=== PATIENT | female | born 1970 | race Caucasian/White ===

== ENCOUNTER 2016-09-11 23:04 | Emergency (ER) | payer OTHER ==
[2016-09-11 23:13] VITALS: BP 139/93; TEMP 97.8; BMI 27.0
[2016-09-11] MEDS ORDERED: LIDOCAINE 1 % AMP 5 ML (SUTURES) IM STA (23:25)
[2016-09-11] MEDS ORDERED: ROCEPHIN IM STA (23:25)
[2016-09-11] MEDS ORDERED: DECADRON 4 MG/ML SDV IM STA (23:25)
[2016-09-11] MEDS ORDERED: TORADOL IM STA (23:25)
--- NOTE | 2016-09-11 23:50 | ED.PDOC ---
General ED Provider: Dr. DUNG GRIMALDO-ER Chief Complaint: Non-specific Complaint Stated Complaint: my face hurts Time Seen by Physician: 23:10 Mode of Arrival: Walk-In Information Source: Patient, Family Exam Limitations: No limitations Primary Care Provider: DUNG GRIMALDO Nursing and Triage Documentation Reviewed and Agree: Yes EENT Complaint Exam - Nasal Complaint/Exam Onset/Duration: 24hrs Symptoms Are: Still present Timing: Constant Initial Severity: Mild Current Severity: Moderate Location: Left Aggravating: Reports: URI Alleviating: Reports: None Associated Signs and Symptoms: Reports: Nasal congestion, Sinus pain, Nasal discharge. Denies: Bruising, Hematuria, Hematochezia, Foreign body, Abnormal coags Related History: Reports: Similar episode Nasal Surgical History: Reports: None Foreign Body Present: No Septal Hematoma: No Differential Diagnoses: Sinusitis, Other Review of Systems - Review Of Systems Constitutional: Reports: No symptoms Eyes: Reports: No symptoms Ears, Nose, Mouth, Throat: Reports: Nose discharge Respiratory: Reports: No symptoms Cardiac: Reports: No symptoms GI: Reports: No symptoms : Reports: No symptoms Musculoskeletal: Reports: No symptoms Skin: Reports: No symptoms Neurological: Reports: No symptoms Endocrine: Reports: No symptoms Hematologic/Lymphatic: Reports: No symptoms All Other Systems: Reviewed and Negative Past Medical History - Past Medical History Previously Healthy: No Endocrine: Reports: Hypothyroid Cardiovascular: Reports: None Respiratory: Reports: None Hematological: Reports: Other (Rheumatoid arthritis) Gastrointestinal: Reports: None Genitourinary: Reports: None Neuro/Psych: Reports: Anxiety Musculoskeletal: Reports: None Cancer: Reports: None Last Menstrual Period: 10 days ago - Surgical History General Surgical History: Reports: Tubal ligation, Other (thyroidectomy) - Family History Family History: Reports: None - Social History Smoking Status: Current every day smoker Hx Substance Use: No Alcohol Screening: None Lives: With family - Immunizations Tetanus Shot up to Date: Yes Physical Exam - Physical Exam Appearance: Well-appearing, No pain distress, Well-nourished Pain Distress: Mild Eyes: DESI, EOMI, Conjunctiva clear ENT: Rhinorrhea Neck: Supple Respiratory: Airway patent Cardiovascular: RRR, Pulses normal, No rub, No murmur GI/: Soft, Nontender, No masses, Bowel sounds normal, No Organomegaly Musculoskeletal: Normal strength, ROM intact, No edema, No calf tenderness Skin: Warm, Dry, Normal color Neurological: Sensation intact Psychiatric: Affect appropriate, Mood appropriate Interpretation - Radiology Interpretation Radiology Interpretation By: Radiologist Radiology Results: Negative Exam Interpreted: CT Scan Critical Care Note - Critical Care Note Total Time (mins): 0 Course - Course Orders, Labs, Meds: Orders Category Date Time Status Ceftriaxone Sodium [Rocephin] MEDS 09/11/16 23:25 Discontinued 1 gm IM ONCE STA Dexamethasone 4 mg/ml Inj [Decadron 4 mg/ml Sdv] MEDS 09/11/16 23:25 Discontinued 4 mg IM ONCE STA Ketorolac Tromethamine [Toradol] MEDS 09/11/16 23:25 Discontinued 60 mg IM ONCE STA Lidocaine HCl/Pf [Lidocaine 1 % Amp 5 ml (Sutures)] MEDS 09/11/16 23:25 Discontinued 2.1 ml IM ONCE STA CT SINUSES W/O CONTRAST Stat RADS 09/11/16 23:26 Taken Medications Discontinued Medications Generic Name Dose Route Start Last Admin Trade Name Jacoboq PRN Reason Stop Dose Admin Ceftriaxone Sodium 1 gm 09/11/16 23:25 Rocephin IM 09/11/16 23:26 ONCE STA Dexamethasone Sodium Phosphate 4 mg 09/11/16 23:25 Decadron 4 Mg/Ml Sdv IM 09/11/16 23:26 ONCE STA Ketorolac Tromethamine 60 mg 09/11/16 23:25 Toradol IM 09/11/16 23:26 ONCE STA Lidocaine HCl 2.1 ml 09/11/16 23:25 Lidocaine 1 % Amp 5 Ml (Sutures) IM 09/11/16 23:26 ONCE STA she is experiencing an intense burning type pain on the left side of the face from the ear to the left side of the nose--her ct scan is not impressive for sinusitis...her pain is so intense i suspect trig neuralgia Vital Signs: Temp Pulse Resp BP Pulse Ox 09/11/16 23:06 97.8 F 76 20 139/93 H 97 Departure - Departure Time of Disposition: 00:09 Disposition: HOME SELF-CARE Discharge Problem: Trigeminal neuralgia of left side of face Instructions: Trigeminal Neuralgia (ED) Condition: Good Pt referred to PMD for follow-up: Yes Additional Instructions: tegretol 100mg bid #30--f/u with me this week in the office Allergies/Adverse Reactions: Allergies levofloxacin [From Levaquin] Adverse Reaction (Verified 09/11/16 23:15) Home Medications: Ambulatory Orders Cetirizine HCl [All Day Allergy] 10 mg PO BEDTIME PRN 03/17/15 Cholecalciferol (Vitamin D3) [Vitamin D] 50,000 unit PO WE 03/17/15 Fluticasone Propionate [Flovent Diskus] 50 mcg IH BID 03/17/15 Hydrocodone/Acetaminophen [Lortab 7.5-325 mg Tablet] 10 - 325 each PO QID Levothyroxine Sodium [Synthroid] 175 mcg PO DAILY 03/17/15 Tocilizumab [Actemra] 162 mg SQ WEEKLY 03/17/15 Diazepam [Valium] 10 mg PO QID #120 03/16/16 Diazepam [Valium] 10 mg PO QID #120 06/08/16 Amoxicillin 500 mg PO TID 09/11/16 Disposition Discussed With: Patient
--- NOTE | 2016-09-12 | CT ---
EXAM: CT scan paranasal sinuses HISTORY: Left-sided facial pain COMPARISON: None. FINDINGS: Contiguous axial images were obtained through the sinuses without contrast utilizing 3-mm collimation. Sagittal and coronal reconstructions were imaged and reviewed. The orbital structure s are intact. Mild mucoperiosteal thickening is seen in the bilateral maxillary sinuses.. There is a small retention cyst within the left maxillary sinus. Ostiomeatal complexes are not well visualiz ed.. Minimal mucoperiosteal thickening is seen in the right frontal ethmoid region Multiple teeth are missing bilaterally. IMPRESSION: Mild chronic sinusitis as described.
[2016-09-12] MEDS ORDERED: TEGRETOL PO STA (00:08)
== END 2016-09-12 00:30 | disposition home or self-care (01) ==
LOC: ED 23:04
DX: G50.0 Trigeminal neuralgia (principal); F17.210 Nicotine dependence, cigarettes, uncomplicated
CPT/HCPCS: 96372; 99282

== ENCOUNTER 2016-12-07 04:00 | Emergency (ER) | payer OTHER ==
[2016-12-07 04:19] VITALS: BP 143/83; TEMP 98.3; BMI 26.2
[2016-12-07] MEDS ORDERED: DILAUDID 1 MG/ML SYRINGE IVP PRN (04:48)
[2016-12-07] MEDS ORDERED: ZOFRAN 4 MG/2 ML IVP STA (04:49)
[2016-12-07] MEDS ORDERED: DECADRON 4 MG/ML SDV 10 MG in SODIUM CHLORIDE 50 ML IV STA (04:49)
[2016-12-07 05:17] LABS: BASOPHILS # (AUTO) 0.1 K/uL (0-0.2); BASOPHILS % (AUTO) 0.8 % (0.0-3.0); EOSINOPHILS # (AUTO) 0.3 K/ul (0.0-0.7); EOSINOPHILS % (AUTO) 3.4 % (0.0-7.0); HEMATOCRIT 39.7 % (37.0-47.0); HEMOGLOBIN 13.7 g/dl (12.0-16.0); IMMATURE GRANULOCYTE % (AUTO) 0.3 % (0.0-5.0); LYMPHOCYTES # (AUTO) 2.2 K/uL (0.60-3.4); LYMPHOCYTES % (AUTO) 28.6 (10.0-50.0); MEAN CORPUSCULAR HEMOGLOBIN 32.9 pg (27.0-31.0); MEAN CORPUSCULAR HGB CONC 34.5 (31.8-35.4); MEAN CORPUSCULAR VOLUME 95.4 fl (81.0-99.0); MONOCYTES # (AUTO) 0.7 K/uL (0.4-2.0); NEUTROPHILS # (AUTO) 4.4 K/ul (2.0-6.9); NEUTROPHILS % (AUTO) 57.9; PLATELET COUNT 148 10^3/uL (140-440); RED BLOOD COUNT 4.16 10^6/ul (4.20-5.40); WHITE BLOOD COUNT 7.65 K/ul (4.6-10.2)
[2016-12-07 05:24] LABS: BILIRUBIN,URINE Negative (NEGATIVE); KETONES,URINE Negative (NEGATIVE); LEUKOCYTE ESTERASE ,URINE Negative (NEGATIVE); NITRITE,URINE Negative (NEGATIVE); PROTEIN,URINE Negative (NEGATIVE); URINE, BLOOD Negative (NEGATIVE)
[2016-12-07] MEDS ORDERED: DECADRON 4 MG/ML SDV ONE (05:28)
[2016-12-07 05:31] LABS: ADD URINE MICROSCOPIC NO
[2016-12-07 05:44] LABS: ALANINE AMINOTRANSFERASE 19 U/L (12-78); ALBUMIN 3.6 g/dL (3.4-5.0); ALKALINE PHOSPHATASE 33 U/L (42-98); AMYLASE 32 U/L (25-115); ANION GAP 10.7; ASPARTATE AMINO TRANSFERASE 13 U/L (15-37); BILIRUBIN,TOTAL 0.32 mg/dL (0.00-1.20); BLOOD UREA NITROGEN 6 mg/dL (7-18); CALCIUM 8.7 mg/dL (8.2-10.2); CARBON DIOXIDE 21 mmol/L (21-32); CHLORIDE 109 mmol/L (98-107); CREATINE KINASE 107 U/L; CREATININE 1.07 mg/dL (0.60-1.30); GLUCOSE 90 mg/dL (70-110); LIPASE 30 U/L (8-78); POTASSIUM 3.7 mmol/L (3.5-5.10); SODIUM 137 mmol/L (136-145); TOTAL PROTEIN 6.6 g/dL (6.4-8.2)
[2016-12-07 05:49] LABS: ERYTHROCYTE SEDIMENTATION RATE 5 mm/hr (0-20); ESR INTERNAL QC INTERNAL QC VALID
--- NOTE | 2016-12-07 06:13 | ED.PDOC ---
General Stated Complaint: my back hurts Time Seen by Physician: 04:15 Mode of Arrival: Walk-In Information Source: Patient, Other Exam Limitations: No limitations Nursing and Triage Documentation Reviewed and Agree: Yes <DUNG RODRIGUEZ - Last Filed: 12/07/16 07:00> <JOSE ALBERTO DUBON - Last Filed: 12/07/16 07:43> ED Provider: Dr. JOSE ALBERTO DUBON Chief Complaint: Back Pain Primary Care Provider: DUNG GRIMALDO Musculoskeletal Complaint Exam - Back Pain Complaint/Exam Mechanism of Injury: Reports: No known trauma Onset/Duration: one week Symptoms Are: Still present Timing: Constant Episodes Lasting: Days Initial Severity: Mild Current Severity: Moderate Location: Reports: Discrete Character: Reports: Aching, Throbbing, Stiffness Aggravating: Reports: Movements, Lifting, Bending, Walking Alleviating: Reports: None Associated Signs and Symptoms: Denies: Swelling, Redness, Bruising, Fever, Weakness, Numbness, Tingling, Abdominal pain, Flank pain, Bladder incontinence, Bowel incontinence, Weight loss, Pain with weight bearing AAA Risk Factors: Reports: None Cauda Equina Risk Factors: Reports: None Epidural Abcess Risk Factors: Reports: None Focal Tenderness: Yes Paraspinal Muscle Tenderness: Yes Paraspinal Muscle Spasm: No Scoliosis: No Lordosis: No Kyphosis: No SLR Test: Right Negative, Left Negative Hip Motion Testing Pain: Right Negative, Left Negative Focal Weakness: Present: None Focal Sensory Loss: Present: None Gait: Present: Abnormal Differential Diagnoses: Arthritis, Herniated Disk, Strain, Sprain <DUNG RODRIGUEZ Last Filed: 12/07/16 07:00> Review of Systems - Review Of Systems Constitutional: Reports: No symptoms Eyes: Reports: No symptoms Ears, Nose, Mouth, Throat: Reports: No symptoms Respiratory: Reports: No symptoms Cardiac: Reports: No symptoms GI: Reports: No symptoms : Reports: No symptoms Musculoskeletal: Reports: Back pain Skin: Reports: No symptoms Neurological: Reports: No symptoms Endocrine: Reports: No symptoms Hematologic/Lymphatic: Reports: No symptoms All Other Systems: Reviewed and Negative <DUNG RODRIGUEZ Last Filed: 12/07/16 07:00> Past Medical History - Past Medical History Previously Healthy: No Endocrine: Reports: Hypothyroid Cardiovascular: Reports: None Respiratory: Reports: None Hematological: Reports: Other (Rheumatoid arthritis) Gastrointestinal: Reports: None Genitourinary: Reports: None Neuro/Psych: Reports: Anxiety Musculoskeletal: Reports: None Cancer: Reports: None Last Menstrual Period: 1 1/2 weeks ago - Surgical History General Surgical History: Reports: Tubal ligation, Other (thyroidectomy) - Family History Family History: Reports: None - Social History Smoking Status: Current every day smoker Hx Substance Use: No (marijuana) Alcohol Screening: None Lives: With family - Immunizations Tetanus Shot up to Date: Yes <DUNG RODRIGUEZ - Last Filed: 12/07/16 07:00> Physical Exam - Physical Exam Appearance: Well-appearing, No pain distress, Well-nourished Pain Distress: Moderate Eyes: DESI, EOMI, Conjunctiva clear ENT: Ears normal, Nose normal, Oropharynx normal Neck: Supple Respiratory: Airway patent, Breath sounds clear, Breath sounds equal, Respirations nonlabored Cardiovascular: RRR, Pulses normal, No rub, No murmur GI/: Soft, Nontender, No masses, Bowel sounds normal, No Organomegaly Musculoskeletal: Normal strength, ROM intact, No edema, No calf tenderness Skin: Warm, Dry, Normal color Neurological: Sensation intact, Motor intact, Reflexes intact, Cranial nerves intact, Alert, Oriented Psychiatric: Affect appropriate, Mood appropriate <DUNG RODRIGUEZ - Last Filed: 12/07/16 07:00> Physician Notification - Case Discussed Physician Notified: dr dubon Time of Notification: 07:00 <DUNG RODRIGUEZ - Last Filed: 12/07/16 07:00> - Case Discussed Physician Notified: ethan Time of Notification: 07:43 (pt matgo home with mag citrate ) <JOSE ALBERTO DUBON Last Filed: 12/07/16 07:43> Critical Care Note - Critical Care Note Total Time (mins): 0 <JOSE ALBERTO DUBON Last Filed: 12/07/16 07:43> Course - Course Hematology/Chemistry: 12/07/16 05:10 12/07/16 05:10 <DUNG RODRIGUEZ - Last Filed: 12/07/16 07:00> - Course Hematology/Chemistry: 12/07/16 05:10 12/07/16 05:10 <JOSE ALBERTO DUBON Last Filed: 12/07/16 07:43> - Course Orders, Labs, Meds: Lab Review 12/07/16 12/07/16 04:50 05:10 WBC 7.65 RBC 4.16 L Hgb 13.7 Hct 39.7 MCV 95.4 MCH 32.9 H MCHC 34.5 RDW Coeff of Mauro 13.1 Plt Count 148 Immature Gran % (Auto) 0.3 Neut % (Auto) 57.9 Lymph % (Auto) 28.6 [place] % (Auto) 9.0 Eos % (Auto) 3.4 Baso % (Auto) 0.8 Immature Gran # (Auto) 0.0 Neut # 4.4 Lymph # 2.2 [place] # 0.7 Eos # 0.3 Baso # 0.1 ESR 5 Sodium 137 Potassium 3.7 Chloride 109 H Carbon Dioxide 21 Anion Gap 10.7 BUN 6 L Creatinine 1.07 Estimated GFR (MDRD) 55.00 BUN/Creatinine Ratio 5.60 Glucose 90 Calcium 8.7 Total Bilirubin 0.32 AST 13 L ALT 19 Alkaline Phosphatase 33 L Total Creatine Kinase 107 Troponin I < 0.0100 Total Protein 6.6 Albumin 3.6 Globulin 3.0 Albumin/Globulin Ratio 1.20 Amylase 32 Lipase 30 Urine Color Yellow Urine Clarity Clear Urine pH 6.0 Ur Specific [place] 1.010 Urine Protein Negative Urine Glucose (UA) Negative Urine Ketones Negative Urine Blood Negative Urine Nitrite Negative Urine Bilirubin Negative Urine Urobilinogen 0.2 Ur Leukocyte Esterase Negative Orders Category Date Time Status EKG-(ED ONLY) Stat CARDIO 12/07/16 04:47 Completed NPO REMINDER: IMAGING ONCE CARE 12/07/16 04:50 Active IV [ED IV/MEDIPORT/POWERPORT] .ONCE EMERGENCY 12/07/16 04:48 Active AMYLASE Stat LAB 12/07/16 05:10 Completed CBC W/ AUTO DIFF Stat LAB 12/07/16 05:10 Completed COMPREHENSIVE METABOLIC PANEL Stat LAB 12/07/16 05:10 Completed CREATINE KINASE Stat LAB 12/07/16 05:10 Completed ESR Stat LAB 12/07/16 05:10 Completed LIPASE Stat LAB 12/07/16 05:10 Completed TROPONIN I Stat LAB 12/07/16 05:10 Completed URINALYSIS C & S IF INDICATED Stat LAB 12/07/16 04:50 Completed 0.9 % Sodium Chloride [Saline Flush] MEDS 12/07/16 04:48 Active 1 syr IVF PRN PRN Dexamethasone 4 mg/ml Inj [Decadron 4 mg/ml Sdv] MEDS 12/07/16 05:28 Discontinued 4 mg .ROUTE .STK-MED ONE Dexamethasone 4 mg/ml Inj [Decadron 4 mg/ml Sdv] 10 mg MEDS 12/07/16 04:49 Discontinued 0.9 % Sodium Chloride [Sodium Chloride] 50 ml IV ONCE Hydromorphone HCl [Dilaudid 1 mg/ml Syringe] MEDS 12/07/16 04:48 Active 1 mg IVP Q1HR PRN Ondansetron HCl/Pf [Zofran 4 mg/2 ml] MEDS 12/07/16 04:49 Discontinued 4 mg IVP ONCE STA CT CHEST PE PROTOCOL Stat RADS 12/07/16 04:[address] LUMBAR SPINE W/O CONTRAST Stat RADS 12/07/16 04:[address] THORACIC SPINE W/O CONTRAST Stat RADS 12/07/16 04:49 Completed Medications Generic Name Dose Route Start Last Admin Trade Name Freq PRN Reason Stop Dose Admin Hydromorphone HCl 1 mg 12/07/16 04:48 12/07/16 05:38 Dilaudid 1 Mg/Ml Syringe IVP 1 mg Q1HR PRN Administration MODERATE PAIN Sodium Chloride 1 syr 12/07/16 04:48 12/07/16 05:40 Saline Flush IVF 1 syr PRN PRN Administration To flush IV Discontinued Medications Generic Name Dose Route Start Last Admin Trade Name Freq PRN Reason Stop Dose Admin Dexamethasone Sodium Phosphate 52.5 mls @ 75 mls/hr 12/07/16 04:49 12/07/16 05:30 10 mg/ Sodium Chloride IV 12/07/16 05:30 75 mls/hr ONCE STA Administration Ondansetron HCl 4 mg 12/07/16 04:49 12/07/16 05:32 Zofran 4 Mg/2 Ml IVP 12/07/16 04:50 4 mg ONCE STA Administration Vital Signs: Temp Pulse Resp BP Pulse Ox 12/07/16 04:02 98.3 F 79 20 143/83 H 98 Departure <DUNG RODRIGUEZ - Last Filed: 12/07/16 07:00> - Departure Time of Disposition: 07:40 (labs imaging discussed with ольга present ) Pt referred to PMD for follow-up: No <JOSE ALBERTO DUBON - Last Filed: 12/07/16 07:43> - Departure Disposition: HOME SELF-CARE Discharge Problem: Generalized weakness, Backache Constipation Qualifiers: Constipation type: unspecified constipation type Qualifier Code: (K59.00) Constipation, unspecified Instructions: Constipation (ED), Weakness (ED), Back Pain (ED) Condition: Good Allergies/Adverse Reactions: Allergies levofloxacin [From Levaquin] Adverse Reaction (Verified 09/11/16 23:15) Home Medications: Ambulatory Orders Cetirizine HCl [All Day Allergy] 10 mg PO BEDTIME PRN 03/17/15 Cholecalciferol (Vitamin D3) [Vitamin D] 50,000 unit PO WE 03/17/15 Fluticasone Propionate [Flovent Diskus] 50 mcg IH BID PRN 03/17/15 Hydrocodone/Acetaminophen [Lortab 7.5-325 mg Tablet] 10 - 325 each PO QID Levothyroxine Sodium [Synthroid] 125 mcg PO DAILY 03/17/15 Tocilizumab [Actemra] 162 mg SQ WEEKLY 03/17/15 Diazepam [Valium] 10 mg PO QID #120 06/08/16 Vitamin B-1 Inj [Thiamine] 100 mg IM MONTHLY 12/07/16
--- NOTE | 2016-12-07 07:17 | CT ---
EXAM: CTA OF THE CHEST. HISTORY: CHEST PAIN AND BACK PAIN. TECHNIQUE: MULTIPLANAR CT IMAGES THROUGH THE THORAX WERE OBTAINED FOLLOWING ADMINISTRATION OF IV CO NTRAST. MIP IMAGES AND 3-D RECONSTRUCTIONS WERE ALSO ACQUIRED. FINDINGS: HEART SIZE IS which is mildly enlarged. No pathologically enlarged thoracic lymph nodes. Great vessels are unremarkable. No pulmonary arterial filling defects. Mild emphysema. No pneumothorax. 4 mm nodule within the right middle lobe. 4 mm nodule along the l eft major fissure. Dependent atelectasis. No consolidated pneumonia. Within the visualized upper abdomen, status post cholecystectomy. No acute osseous abnormalities. Impression: 1. No pulmonary embolism and no consolidated pneumonia. 2. Mild emphysema. 3. Mild cardiomegaly. 4. Dependent atelectasis.
--- NOTE | 2016-12-07 07:19 | CT ---
EXAM: CT thoracic spine without contrast History: Back pain. Comparison: Lumbar spine CT 12/07/2016 Technique: Multiplanar CT images through the thoracic spine were obtained without the administratio n of IV contrast Findings: Mild emphysema seen within the lungs. Dependent atelectasis within the lung. Cholecystec afua clips. No acute fracture or subluxation. Disc space heights are preserved. Bony spinal canal is not compromised. Impression: No acute osseous abnormality of the thoracic spine and no significant degenerative reyes ges.
--- NOTE | 2016-12-07 07:23 | CT ---
EXAM: CT of the lumbar spine without contrast History: Lower back pain. Technique: Multiplanar CT images through the lumbar spine were obtained without the administration of IV contrast Findings: Cholecystectomy clips. Atherosclerotic vascular calcifications. The partially visualized bladder i s moderately distended. No acute fracture or subluxation. Disc space heights are preserved. Small to modest disc bulge at L 4-L5 with no significant bony central canal stenosis. No significant bony neural foraminal narrowin g. Impression: No acute osseous abnormality of the lumbar spine and no significant degenerative change s.
== END 2016-12-07 07:55 | disposition home or self-care (01) ==
LOC: ED 04:00
DX: K59.00 Constipation, unspecified (principal); M54.9 Dorsalgia, unspecified; R53.1 Weakness; F17.210 Nicotine dependence, cigarettes, uncomplicated; Z79.899 Other long term (current) drug therapy
CPT/HCPCS: 36415; 80053; 81001; 82150; 82550; 83690; 84484; 85025; 85651; 93005; 93010; 96365; 96375; 99283

== ENCOUNTER 2017-07-25 15:19 | Outpatient (CLI) ==
[2017-07-25 15:44] LABS: BASOPHILS # (AUTO) 0.1 K/uL (0-0.2); BASOPHILS % (AUTO) 0.5 % (0.0-3.0); EOSINOPHILS # (AUTO) 0.1 K/ul (0.0-0.7); EOSINOPHILS % (AUTO) 0.8 % (0.0-7.0); HEMATOCRIT 43.8 % (37.0-47.0); HEMOGLOBIN 15.2 g/dl (12.0-16.0); IMMATURE GRANULOCYTE % (AUTO) 0.5 % (0.0-5.0); LYMPHOCYTES # (AUTO) 2.2 K/uL (0.60-3.4); LYMPHOCYTES % (AUTO) 21.3 (10.0-50.0); MEAN CORPUSCULAR HEMOGLOBIN 33.5 pg (27.0-31.0); MEAN CORPUSCULAR HGB CONC 34.7 (31.8-35.4); MEAN CORPUSCULAR VOLUME 96.5 fl (81.0-99.0); MONOCYTES # (AUTO) 0.6 K/uL (0.4-2.0); NEUTROPHILS # (AUTO) 7.4 K/ul (2.0-6.9); NEUTROPHILS % (AUTO) 70.9; PLATELET COUNT 193 10^3/uL (140-440); RED BLOOD COUNT 4.54 10^6/ul (4.20-5.40); WHITE BLOOD COUNT 10.47 K/ul (4.6-10.2)
[2017-07-25 16:08] LABS: ALBUMIN 3.7 g/dL (3.4-5.0); ALBUMIN/GLOBULIN RATIO 1.09; ANION GAP 14.1; BILIRUBIN,TOTAL 0.44 mg/dL (0.00-1.20); CALCIUM 8.9 mg/dL (8.2-10.2); CREATININE 1.2 mg/dL (0.60-1.30); POTASSIUM 4.1 mmol/L (3.5-5.10); TOTAL PROTEIN 7.1 g/dL (6.4-8.2)
[2017-07-25 16:33] LABS: ERYTHROCYTE SEDIMENTATION RATE 4 mm/hr (0-20); ESR INTERNAL QC INTERNAL QC VALID
== END 2017-07-25 15:20 | disposition home or self-care (01) ==
LOC: LAB 15:19
PROVIDERS: ATTEND Internal Medicine Rheumatology
DX: M05.79 Rheumatoid arthritis with rheumatoid factor of multiple sites without organ or systems involvement (principal)
CPT/HCPCS: 36415; 80053; 85025; 85651

== ENCOUNTER 2017-08-28 21:06 | Emergency (ER) | payer OTHER ==
[2017-08-28 21:14] VITALS: BP 136/88; TEMP 97.6; BMI 25.4
[2017-08-28] MEDS ORDERED: ROBITUSSIN AC SYRUP PO STA (21:18)
[2017-08-28] MEDS ORDERED: DECADRON 4 MG/ML SDV IM STA (21:18)
--- NOTE | 2017-08-28 21:25 | ED.PDOC ---
General ED Provider: Dr. MARIPOSA KINGSTON Chief Complaint: Cough Stated Complaint: Coughing, sinus headache. sore throat. feverish, hurting all over Time Seen by Physician: 21:19 Mode of Arrival: Walk-In Information Source: Patient Primary Care Provider: DUNG GRIMALDO Nursing and Triage Documentation Reviewed and Agree: Yes Reviewed sepsis parameters & appropriate labs ordered?: No System Inflammatory Response Syndrome: Not Applicable Sepsis Protocol: For patient's 13 years and over: Temp is 96.8 and below OR 101 and greater Pulse >90 BPM Resp >20/minute Acutely Altered Mental Status Are patient's symptoms suggestive of a new infection, such as: -Pneumonia -Skin, Soft Tissue -Endocarditis -UTI -Bone, Joint Infection -Implantable Device -Acute Abdominal Infection -Wound Infection -Meningitis -Blood Stream Catheter Infection -Unknown Respiratory Complaint Exam - Respiratory Complaint/Exam Symptoms Are: Still present Timing: Constant Initial Severity: Mild Current Severity: Mild Location: Nose, Chest Character: Reports: Non-productive cough Aggravating: Reports: Exertion, URI Alleviating: Reports: None Associated Signs and Symptoms: Reports: URI, Nasal congestion, Hoarseness, Sinus discomfort. Denies: Rapid breathing, Dyspnea, Fever, Chills, Chest pain, Pleuritic chest pain, Wheezing, Hemoptysis, Dizziness, Calf pain, Calf swelling , Edema, Vomiting, Sore throat, Weight loss, Decreased oral intake, Increased thirst, Increased appetite, Increased urination Review of Systems - Review Of Systems Constitutional: Reports: No symptoms Eyes: Reports: No symptoms Ears, Nose, Mouth, Throat: Reports: No symptoms Respiratory: Reports: Cough Cardiac: Reports: No symptoms GI: Reports: No symptoms : Reports: No symptoms Musculoskeletal: Reports: No symptoms Skin: Reports: No symptoms Neurological: Reports: No symptoms Endocrine: Reports: No symptoms Hematologic/Lymphatic: Reports: No symptoms All Other Systems: Reviewed and Negative Past Medical History - Past Medical History Previously Healthy: No Endocrine: Reports: Hypothyroid Cardiovascular: Reports: None Respiratory: Reports: None Hematological: Reports: Other (Rheumatoid arthritis) Gastrointestinal: Reports: None Genitourinary: Reports: None Neuro/Psych: Reports: Anxiety Musculoskeletal: Reports: None Cancer: Reports: None Last Menstrual Period: 6 days ago - Surgical History General Surgical History: Reports: Tubal ligation, Other (thyroidectomy) - Family History Family History: Reports: None - Social History Smoking Status: Current every day smoker Hx Substance Use: No (marijuana) Alcohol Screening: None - Immunizations Tetanus Shot up to Date: Yes Physical Exam - Physical Exam Appearance: Ill-appearing Eyes: DESI, EOMI, Conjunctiva clear ENT: Ears normal, Nose normal, Oropharynx normal Respiratory: Airway patent, Breath sounds clear, Breath sounds equal, Respirations nonlabored Cardiovascular: RRR, Pulses normal, No rub, No murmur GI/: Soft, Nontender, No masses, Bowel sounds normal, No Organomegaly Musculoskeletal: Normal strength, ROM intact, No edema, No calf tenderness Skin: Warm, Dry, Normal color Neurological: Sensation intact, Motor intact, Reflexes intact, Cranial nerves intact, Alert, Oriented Psychiatric: Affect appropriate, Mood appropriate Critical Care Note - Critical Care Note Total Time (mins): 10 Course - Course Orders, Labs, Meds: Lab Review 08/28/17 21:24 Influenza A (Rapid) Positive by naat H Influenza B (Rapid) Negative by naat Orders Category Date Time Status MOLECULAR FLU A/B Stat LAB 08/28/17 21:24 Completed MOLECULAR GROUP A STREP Stat LAB 08/28/17 21:24 Completed Dexamethasone 4 mg/ml Inj [Decadron 4 mg/ml Sdv] MEDS 08/28/17 21:18 Discontinued 4 mg IM ONCE STA Guaifenesin/Codeine Phosphate [Robitussin AC Syrup] MEDS 08/28/17 21:18 Discontinued 10 ml PO ONCE STA CHEST, 2 VIEWS PA & LAT Stat RADS 08/28/17 21:18 Taken Medications Discontinued Medications Generic Name Dose Route Start Last Admin Trade Name Jacoboq PRN Reason Stop Dose Admin Dexamethasone Sodium Phosphate 4 mg 08/28/17 21:18 08/28/17 21:27 Decadron 4 Mg/Ml Sdv IM 08/28/17 21:19 4 mg ONCE STA Administration Guaifenesin/Codeine Phosphate 10 ml 08/28/17 21:18 08/28/17 21:27 Robitussin Ac Syrup PO 08/28/17 21:19 10 ml ONCE STA Administration Vital Signs: Temp Pulse Resp BP Pulse Ox 08/28/17 21:06 97.6 F 80 20 136/88 98 Departure - Departure Time of Disposition: 21:43 Disposition: HOME SELF-CARE Discharge Problem: Influenza A Instructions: Influenza (ED) Condition: Stable Pt referred to PMD for follow-up: No Additional Instructions: Increase Hydration Tylenol Prescriptions: Oseltamivir Phosphate [Tamiflu] 75 mg PO Q12HR #10 capsule Guaifenesin/Codeine Phosphate [Robitussin AC Syrup] 10 ml PO Q6H #1 bottle Prednisone 10 mg PO BIDWM #14 tablet Allergies/Adverse Reactions: Allergies levofloxacin [From Levaquin] Adverse Reaction (Verified 08/28/17 21:12) Home Medications: Ambulatory Orders Cetirizine HCl [All Day Allergy] 10 mg PO BEDTIME PRN 03/17/15 Cholecalciferol (Vitamin D3) [Vitamin D] 50,000 unit PO WE 03/17/15 Fluticasone Propionate [Flovent Diskus] 50 mcg IH BID PRN 03/17/15 Hydrocodone/Acetaminophen [Lortab 7.5-325 mg Tablet] 10 - 325 each PO QID Levothyroxine Sodium [Synthroid] 125 mcg PO DAILY 03/17/15 Tocilizumab [Actemra] 162 mg SQ WEEKLY 03/17/15 Vitamin B-1 Inj [Thiamine] 100 mg IM MONTHLY 12/07/16 Guaifenesin/Codeine Phosphate [Robitussin AC Syrup] 10 ml PO Q6H #1 bottle 08/28 Oseltamivir Phosphate [Tamiflu] 75 mg PO Q12HR #10 capsule 08/28/17 Prednisone 10 mg PO BIDWM #14 tablet 08/28/17 Disposition Discussed With: Patient, Family
--- NOTE | 2017-08-29 08:00 | DI ---
EXAM: Chest two views HISTORY: Coughing COMPARISON: None TECHNIQUE: Two views of the chest were performed FINDINGS: The lungs are clear. There is no pleural effusion or pneumothorax. The heart is normal i n size. The mediastinal contour is normal. There are no acute abnormalities of the bones. IMPRESSION: No acute cardiopulmonary process.
== END 2017-08-28 21:55 | disposition home or self-care (01) ==
LOC: ED 21:06
DX: J09.X2 Influenza due to identified novel influenza A virus with other respiratory manifestations (principal); F17.210 Nicotine dependence, cigarettes, uncomplicated
CPT/HCPCS: 87502; 87651; 96372; 99283

== ENCOUNTER 2017-12-12 20:44 | Emergency (ER) | payer OTHER ==
[2017-12-12 20:54] VITALS: BP 159/97; TEMP 97.8; BMI 24.5
--- NOTE | 2017-12-12 22:10 | CT ---
EXAM: CT of the head without contrast History: Head trauma. Technique: Multiplanar CT images through the head were obtained without the administration of IV con trast Findings: The visualized paranasal sinuses and mastoid air cells are clear in general. No acute markel varial abnormalities. Intracranially the ventricular and cisternal spaces are normal in size, shape and configuration for a patient of this age. No dominant mass or midline shift. No hydrocephalous. No acute intracranial hemorrhage or abnormal extraaxial fluid collections. Impression: No acute intracranial process.
--- NOTE | 2017-12-12 22:14 | CT ---
EXAM: CT of the cervical spine without contrast History: Head and neck trauma. Technique: Multiplanar CT images through the cervical spine were obtained without the administration of IV contrast Findings: The visualized lung apices are free of consolidation. Emphysema is seen within the visual ized upper lungs. The visualized airway remains patent. No acute fracture or subluxation of the cervical spine. No prevertebral soft tissue swelling. Prede ntal space is not widened. Disc space heights are preserved. Bony spinal canal is not compromised. Impression: No acute osseous abnormality of the cervical spine
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
[2017-12-13] MEDS ORDERED: NORCO 7.5-325 PO STA (00:19)
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
== END 2017-12-13 00:30 | disposition home or self-care (01) ==
LOC: ED 20:44
DX: S40.012A Contusion of left shoulder, initial encounter (principal); R07.89 Other chest pain; R10.9 Unspecified abdominal pain; F17.210 Nicotine dependence, cigarettes, uncomplicated; V86.99XA Unspecified occupant of other special all-terrain or other off-road motor vehicle injured in nontraffic accident, initial encounter
CPT/HCPCS: 36415; 80053; 81001; 84703; 85025; 99283

== ENCOUNTER 2018-03-31 00:17 | Emergency (ER) | payer OTHER ==
[2018-03-31 00:26] VITALS: BP 144/90; TEMP 98.2; BMI 25.0
[2018-03-31] MEDS ORDERED: DECADRON 4 MG/ML SDV IM STA (00:32)
[2018-03-31] MEDS ORDERED: ATARAX PO STA (00:32)
--- NOTE | 2018-03-31 00:35 | ED.PDOC ---
General ED Provider: Dr. MARIPOSA KINGSTON Chief Complaint: Rash Stated Complaint: Rash, Itching since Sunday, all over the body, no new cloths or detergent. spreading all over the body Time Seen by Physician: 00:33 Mode of Arrival: Walk-In Information Source: Patient Primary Care Provider: DUNG GRIMALDO Nursing and Triage Documentation Reviewed and Agree: Yes Does patient meet sepsis criteria?: No If yes, has appropriate treatment been initiated?: No System Inflammatory Response Syndrome: Not Applicable Sepsis Protocol: For patient's 13 years and over: Temp is 96.8 and below OR 101 and greater Pulse >90 BPM Resp >20/minute Acutely Altered Mental Status Are patient's symptoms suggestive of a new infection, such as: -Pneumonia -Skin, Soft Tissue -Endocarditis -UTI -Bone, Joint Infection -Implantable Device -Acute Abdominal Infection -Wound Infection -Meningitis -Blood Stream Catheter Infection -Unknown Skin Complaint Exam - Skin Rash/Itching Complaint/Exam Symptoms Are: Still present Initial Severity: Moderate Current Severity: Moderate Potential Exposures: Reports: Unknown Aggravating: Reports: None Alleviating: Reports: None Associated Signs and Symptoms: Denies: Difficulty breathing, Fever, Chills Skin Findings: Present: Maculae Differential Diagnoses: Allergic Reaction Review of Systems - Review Of Systems Constitutional: Reports: No symptoms Eyes: Reports: No symptoms Ears, Nose, Mouth, Throat: Reports: No symptoms Respiratory: Reports: No symptoms Cardiac: Reports: No symptoms GI: Reports: No symptoms : Reports: No symptoms Musculoskeletal: Reports: No symptoms Skin: Reports: Rash Neurological: Reports: No symptoms Endocrine: Reports: No symptoms Hematologic/Lymphatic: Reports: No symptoms All Other Systems: Reviewed and Negative Past Medical History - Past Medical History Previously Healthy: No Endocrine: Reports: Hypothyroid Cardiovascular: Reports: None Respiratory: Reports: None Hematological: Reports: Other (Rheumatoid arthritis) Gastrointestinal: Reports: None Genitourinary: Reports: None Neuro/Psych: Reports: Anxiety Musculoskeletal: Reports: None Cancer: Reports: None Last Menstrual Period: 2.5 weeks ago - Surgical History General Surgical History: Reports: Tubal ligation, Other (thyroidectomy) - Family History Family History: Reports: None - Social History Smoking Status: Current every day smoker, Heavy tobacco smoker Smoking Cessation Counseling Time: > 10 min Hx Substance Use: No Alcohol Screening: None - Immunizations Tetanus Shot up to Date: Yes Physical Exam - Physical Exam Appearance: Well-appearing, No pain distress, Well-nourished Eyes: DESI, EOMI, Conjunctiva clear ENT: Ears normal, Nose normal, Oropharynx normal Respiratory: Airway patent, Breath sounds clear, Breath sounds equal, Respirations nonlabored Cardiovascular: RRR, Pulses normal, No rub, No murmur GI/: Soft, Nontender, No masses, Bowel sounds normal, No Organomegaly Musculoskeletal: Normal strength, ROM intact, No edema, No calf tenderness Skin: Warm, Dry, Normal color Neurological: Sensation intact, Motor intact, Reflexes intact, Cranial nerves intact, Alert, Oriented Psychiatric: Affect appropriate, Mood appropriate Critical Care Note - Critical Care Note Total Time (mins): 30 Course - Course Orders, Labs, Meds: Orders Category Date Time Status Dexamethasone 4 mg/ml Inj [Decadron 4 mg/ml Sdv] MEDS 03/31/18 00:32 Stat 4 mg IM ONCE STA Hydroxyzine HCl [Atarax] MEDS 03/31/18 00:32 Stat 25 mg PO ONCE STA Vital Signs: Temp Pulse Resp BP Pulse Ox 03/31/18 00:18 98.2 F 77 20 144/90 H 98 Departure - Departure Time of Disposition: 00:38 Disposition: HOME SELF-CARE Discharge Problem: Pruritic rash Instructions: Dermatitis (ED) Condition: Stable Pt referred to PMD for follow-up: Yes IPMP verified?: No Additional Instructions: No driving after taking Benadryl. If not better in 2 days f/u with PMD Prescriptions: Diphenhydramine HCl [Benadryl] 25 mg PO Q6H #14 capsule Prednisone 10 mg PO BIDWM #14 tablet Allergies/Adverse Reactions: Allergies levofloxacin [From Levaquin] Adverse Reaction (Verified 03/31/18 00:26) Home Medications: Ambulatory Orders Cetirizine HCl [All Day Allergy] 10 mg PO BEDTIME PRN 03/17/15 Cholecalciferol (Vitamin D3) [Vitamin D] 50,000 unit PO WE 03/17/15 Fluticasone Propionate [Flovent Diskus] 50 mcg IH BID PRN 03/17/15 Hydrocodone/Acetaminophen [Lortab 7.5-325 mg Tablet] 10 - 325 each PO QID Levothyroxine Sodium [Synthroid] 125 mcg PO DAILY 03/17/15 Tocilizumab [Actemra] 162 mg SQ WEEKLY 03/17/15 Vitamin B-1 Inj [Thiamine] 100 mg IM MONTHLY 12/07/16 Diphenhydramine HCl [Benadryl] 25 mg PO Q6H #14 capsule 03/31/18 Prednisone 10 mg PO BIDWM #14 tablet 03/31/18 Disposition Discussed With: Patient
== END 2018-03-31 01:03 | disposition home or self-care (01) ==
LOC: ED 00:17
DX: R21 Rash and other nonspecific skin eruption (principal); L29.9 Pruritus, unspecified; F17.210 Nicotine dependence, cigarettes, uncomplicated
CPT/HCPCS: 96372; 99282

== ENCOUNTER 2018-04-03 15:10 | Outpatient (CLI) | END 2018-04-03 15:11 | disposition home or self-care (01) | LOC: LAB 15:10 | PROVIDERS: ATTEND Internal Medicine Rheumatology | DX: M06.09 Rheumatoid arthritis without rheumatoid factor, multiple sites (principal) | CPT/HCPCS: 36415; 80053; 85025; 85651; 86140 ==

== ENCOUNTER 2018-10-30 15:59 | Outpatient (CLI) | payer OTHER ==
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
== END 2018-10-30 16:00 | disposition home or self-care (01) ==
LOC: RAD 15:59
PROVIDERS: ATTEND Family Medicine
DX: J01.90 Acute sinusitis, unspecified (principal)

== ENCOUNTER 2018-12-06 10:06 | Outpatient (CLI) | END 2018-12-06 10:07 | disposition home or self-care (01) | LOC: LAB 10:06 | PROVIDERS: ATTEND Internal Medicine Rheumatology | DX: M06.09 Rheumatoid arthritis without rheumatoid factor, multiple sites (principal) | CPT/HCPCS: 36415; 80053; 85027; 85651 ==

== ENCOUNTER 2018-12-12 20:22 | Emergency (ER) ==
[2018-12-12 20:25] VITALS: BP 147/99; TEMP 98.1; BMI 24.3
[2018-12-12] MEDS ORDERED: DILAUDID 1 MG/ML SYRINGE IM STA ×2 (20:28→21:05)
[2018-12-12] MEDS ORDERED: TORADOL IM STA (20:28)
[2018-12-12] MEDS ORDERED: PHENERGAN 25 MG/ML VIAL IM STA (20:28)
[2018-12-12] MEDS ORDERED: DILAUDID 1 MG/ML SYRINGE ONE (21:07)
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
--- NOTE | 2018-12-12 21:16 | ED.PDOC ---
General ED Provider: Dr. DUNG GRIMALDO-ER Chief Complaint: Back Pain Stated Complaint: i fell and hurt my back Time Seen by Physician: 20:25 Mode of Arrival: Walk-In Information Source: Patient Exam Limitations: No limitations Primary Care Provider: DUNG GRIMALDO Nursing and Triage Documentation Reviewed and Agree: Yes Does patient meet sepsis criteria?: No System Inflammatory Response Syndrome: Not Applicable Sepsis Protocol: For patient's 13 years and over: Temp is 96.8 and below OR 101 and greater Pulse >90 BPM Resp >20/minute Acutely Altered Mental Status Are patient's symptoms suggestive of a new infection, such as: -Pneumonia -Skin, Soft Tissue -Endocarditis -UTI -Bone, Joint Infection -Implantable Device -Acute Abdominal Infection -Wound Infection -Meningitis -Blood Stream Catheter Infection -Unknown Musculoskeletal Complaint Exam - Back Pain Complaint/Exam Mechanism of Injury: Reports: Trauma Onset/Duration: several hours Symptoms Are: Still present Initial Severity: Mild Current Severity: Moderate Location: Reports: Discrete Character: Reports: Dull, Aching Aggravating: Reports: Movements, Lifting, Bending, Walking Alleviating: Reports: None Associated Signs and Symptoms: Denies: Swelling, Redness, Bruising, Fever, Weakness, Numbness, Tingling, Abdominal pain, Flank pain, Bladder incontinence, Bowel incontinence, Weight loss, Pain with weight bearing Paraspinal Muscle Tenderness: Yes Paraspinal Muscle Spasm: No Scoliosis: No Lordosis: No Kyphosis: No SLR Test: Right Negative, Left Negative Hip Motion Testing Pain: Right Negative, Left Negative Focal Weakness: Present: None Focal Sensory Loss: Present: None Gait: Present: Normal Differential Diagnoses: Fracture Review of Systems - Review Of Systems Constitutional: Reports: No symptoms Eyes: Reports: No symptoms Ears, Nose, Mouth, Throat: Reports: No symptoms Respiratory: Reports: No symptoms Cardiac: Reports: No symptoms GI: Reports: No symptoms : Reports: No symptoms Musculoskeletal: Reports: Back pain Skin: Reports: No symptoms Neurological: Reports: No symptoms Endocrine: Reports: No symptoms Hematologic/Lymphatic: Reports: No symptoms All Other Systems: Reviewed and Negative Past Medical History - Past Medical History Previously Healthy: No Endocrine: Reports: Hypothyroid Cardiovascular: Reports: None Respiratory: Reports: None Hematological: Reports: Other (Rheumatoid arthritis) Gastrointestinal: Reports: None Genitourinary: Reports: None Neuro/Psych: Reports: Anxiety Musculoskeletal: Reports: None Cancer: Reports: None Last Menstrual Period: 26th of last month - Surgical History General Surgical History: Reports: Tubal ligation, Other (thyroidectomy) - Family History Family History: Reports: None - Social History Smoking Status: Current every day smoker, Heavy tobacco smoker Hx Substance Use: No Alcohol Screening: None - Immunizations Tetanus Shot up to Date: Yes Physical Exam - Physical Exam Appearance: Well-appearing Pain Distress: Moderate Eyes: DESI, EOMI, Conjunctiva clear ENT: Ears normal, Nose normal, Oropharynx normal Neck: Supple Respiratory: Airway patent, Breath sounds clear, Breath sounds equal, Respirations nonlabored Cardiovascular: RRR, Pulses normal, No rub, No murmur GI/: Soft, Nontender, No masses, Bowel sounds normal, No Organomegaly Musculoskeletal: Limited ROM Skin: Warm, Dry, Normal color Neurological: Sensation intact, Motor intact, Reflexes intact, Cranial nerves intact, Alert, Oriented Psychiatric: Affect appropriate, Mood appropriate Interpretation - Radiology Interpretation Radiology Interpretation By: Radiologist Radiology Results: Negative Exam Interpreted: CT Scan Critical Care Note - Critical Care Note Total Time (mins): 0 Course - Course Orders, Labs, Meds: Orders Category Date Time Status Hydromorphone HCl [Dilaudid 1 mg/ml Syringe] MEDS 12/12/18 21:07 Discontinued 1 mg .ROUTE .STK-MED ONE Hydromorphone HCl [Dilaudid 1 mg/ml Syringe] MEDS 12/12/18 20:28 Discontinued 1 mg IM ONCE STA Hydromorphone HCl [Dilaudid 1 mg/ml Syringe] MEDS 12/12/18 21:05 Discontinued 1 mg IM ONCE STA Ketorolac Tromethamine [Toradol] MEDS 12/12/18 20:28 Discontinued 60 mg IM ONCE STA Promethazine HCl [Phenergan 25 mg/ml Vial] MEDS 12/12/18 20:28 Discontinued 25 mg IM ONCE STA CT LUMBAR SPINE W/O CONTRAST Stat RADS 12/12/18 20:29 Completed Medications Discontinued Medications Generic Name Dose Route Start Last Admin Trade Name Freq PRN Reason Stop Dose Admin Hydromorphone HCl 1 mg 12/12/18 20:28 12/12/18 20:38 Dilaudid 1 Mg/Ml Syringe IM 12/12/18 20:29 1 mg ONCE STA Administration Hydromorphone HCl 1 mg 12/12/18 21:05 12/12/18 21:11 Dilaudid 1 Mg/Ml Syringe IM 12/12/18 21:06 1 mg ONCE STA Administration Ketorolac Tromethamine 60 mg 12/12/18 20:28 12/12/18 20:39 Toradol IM 12/12/18 20:29 60 mg ONCE STA Administration Promethazine HCl 25 mg 12/12/18 20:28 12/12/18 20:38 Phenergan 25 Mg/Ml Vial IM 12/12/18 20:29 25 mg ONCE STA Administration Vital Signs: Temp Pulse Resp BP Pulse Ox 12/12/18 20:22 98.1 F 101 H 16 147/99 H 96 Departure - Departure Time of Disposition: 21:16 Disposition: HOME SELF-CARE Discharge Problem: Low back pain Qualifiers: Chronicity: acute Back pain laterality: midline Sciatica presence: unspecified whether sciatica present Qualified Code(s): M54.5 - Low back pain Instructions: Low Back Strain (ED) Condition: Good Pt referred to PMD for follow-up: Yes IPMP verified?: No Additional Instructions: percocet 10mg qid prn pain#12--medrol dose pack---heat alt ice---recheck in 72hrs if not [id number] Allergies/Adverse Reactions: Allergies levofloxacin [From Levaquin] Adverse Reaction (Verified 12/12/18 20:25) Home Medications: Ambulatory Orders Cetirizine HCl [All Day Allergy] 10 mg PO BEDTIME PRN 03/17/15 Cholecalciferol (Vitamin D3) [Vitamin D] 50,000 unit PO WE 03/17/15 Fluticasone Propionate [Flovent Diskus] 50 mcg IH BID PRN 03/17/15 Hydrocodone/Acetaminophen [Lortab 7.5-325 mg Tablet] 10 - 325 each PO QID Levothyroxine Sodium [Synthroid] 125 mcg PO DAILY 03/17/15 Tocilizumab [Actemra] 162 mg SQ WEEKLY 03/17/15 Vitamin B-1 Inj [Thiamine] 100 mg IM MONTHLY 12/07/16 Diphenhydramine HCl [Benadryl] 25 mg PO Q6H #14 capsule 03/31/18 Prednisone 10 mg PO BIDWM #14 tablet 03/31/18 Disposition Discussed With: Patient, Family
== END 2018-12-12 21:23 | disposition home or self-care (01) ==
LOC: ED 20:22
DX: M54.5 Low back pain (principal); W19.XXXA Unspecified fall, initial encounter; F17.210 Nicotine dependence, cigarettes, uncomplicated
CPT/HCPCS: 96372; 99283

== ENCOUNTER 2019-04-11 10:59 | Outpatient (CLI) | END 2019-04-11 11:00 | disposition home or self-care (01) | LOC: LAB 10:59 | PROVIDERS: ATTEND Physician Assistant | DX: R30.9 Painful micturition, unspecified (principal); R30.0 Dysuria; M06.09 Rheumatoid arthritis without rheumatoid factor, multiple sites | CPT/HCPCS: 36415; 80053; 81001; 87086 ==